=== PATIENT | female | born 1990 | race Caucasian/White ===

== ENCOUNTER 2018-12-05 21:03 | Emergency (ER) | payer OTHER ==
[~2018-12-05] VITALS: Ht 160 cm; Wt 100.0 kg
[~2018-12-05 21:03] MED LIST: ZOF4T PO
[2018-12-05] MEDS ORDERED: LORazepam 2 mg/ml vial IM ONE (21:15)
--- NOTE | 2018-12-05 21:15 | NUR ---
SPOKE TO DR JOY ABOUT HER SEVERE PANIC ATTACK, ORDERED ATIVAN INJECTION FOR HER
[2018-12-05] MEDS ORDERED: normal saline 1000ML IV soln IVB ONE (22:55)
[2018-12-05] MEDS ORDERED: ondansetron/PF 4mg/2ml inj IV ONE (23:05)
[2018-12-05 23:47] LABS: ALANINE AMINOTRANSFERASE 21 U/L (12-78); ALBUMIN 3.8 G/DL (3.4-5.0); ALBUMIN/GLOBULIN RATIO 0.9 (1.1-1.5); ALKALINE PHOSPHATASE 146 IU/L (46-116); ANION GAP 13 (8-16); ASPARTATE AMINO TRANSFERASE 13 U/L (10-37); BILIRUBIN,TOTAL 0.8 MG/DL (0.1-1.0); BLOOD UREA NITROGEN 13 MG/DL (7-18); BUN/CREATININE RATIO 15.1 (6.6-38.0); CALCIUM 9.4 MG/DL (8.5-10.1); CHLORIDE 97 MMOL/L (99-107); CREATININE 0.86 MG/DL (0.40-0.90); GLUCOSE 381 MG/DL (70-104); POTASSIUM 4.7 MMOL/L (3.5-5.1); SODIUM 131 MMOL/L (135-145); TOTAL CARBON DIOXIDE 21.4 MMOL/L (24-32); TOTAL PROTEIN 8.1 G/DL (6.4-8.2); eGFR 79 ML/MIN
[2018-12-05] MEDS ORDERED: insulin regular, human 10 units/0.1 ml syringe IV ONE (23:55)
--- NOTE | 2018-12-06 01:00 | NUR ---
2nd L NS infusing, pt just give 10u insulin iv. pt HR 117 other vitals stable. pt denies pain. pt's boyfriend at bedside.
[2018-12-06] MEDS ORDERED: LORazepam 2 mg/ml vial IV ONE (01:05)
[2018-12-06] MEDS ORDERED: insulin regular, human 10 units/0.1 ml syringe IV ONE (02:10)
[2018-12-06 02:33] VITALS: BP 104/47
== END 2018-12-06 03:22 | disposition home or self-care (01) ==
LOC: MERGE 21:03 → ER 21:03
DX: E11.65 Type 2 diabetes mellitus with hyperglycemia (principal); F41.9 Anxiety disorder, unspecified; R11.2 Nausea with vomiting, unspecified
CPT/HCPCS: 36415; 80053; 82948; 96361; 96372; 96374; 96375; 96376; 99283; J1815; J2060; J2405; J7030